=== PATIENT | male | born 1990 | race Caucasian/White ===

== ENCOUNTER 2018-12-22 22:01 | Emergency (ER) | payer MEDICAID ==
[2018-12-22 22:09] VITALS: BP 142/87
--- NOTE | 2018-12-22 22:18 | ED Physician Documentation ---
PD HPI OPHTHO - Stated complaint Stated Complaint: RT EYE IRRITATION - Chief complaint Chief Complaint: Heent - History obtained from History obtained from: Patient - History of Present Illness Timing - onset: Other (He has had eye irritation for the last 7 days with swelling that goes up and down the upper right eyelid and a little bit of the upper left eyelid. His vision is unaffected. He saw an paint tester who said it was nothing.) Review of Systems Constitutional: denies: Fever, Chills Eyes: reports: Irritation. denies: Loss of vision, Decreased vision, Photophobia, Discharge Ears: denies: Loss of hearing, Ear pain PD PAST MEDICAL HISTORY - Present Medications Home Medications: Ambulatory Orders Medication Instructions Recorded Confirmed Tobramycin/Dexamethasone [Tobradex 1 drops OP QID 7 Days #1 drops.susp 12/22/18 Eye Drops] - Allergies Allergies/Adverse Reactions: Allergies Allergy/AdvReac Type Severity Reaction Status Date / Time No Known Drug Allergies Allergy Verified 12/22/18 22:09 PD ED PE NORMAL - Vitals Vital signs reviewed: Yes - General General: Alert and oriented X 3, No acute distress - HEENT HEENT: PERRL, EOMI, Other (He has blepharitis of the upper lids of both eyes, right worse than left. Cornea and sclera are normal. Globes are soft.) - Neuro Neuro: Alert and oriented X 3, Normal speech Results - Vitals Vitals: Vital Signs - 24 hr 12/22/18 22:06 Temperature 36.2 C L Heart Rate 88 Respiratory 16 Rate Blood Pressure 142/87 H O2 Saturation 98 Oxygen O2 Source Room air Departure - Departure Disposition: 01 Home, Self Care Clinical Impression: Blepharitis of both eyes Qualifiers: Blepharitis type: squamous Eyelid: upper Qualified Code(s): H01.021 - Squamous blepharitis right upper eyelid Condition: Good Record reviewed to determine appropriate education?: Yes Instructions: ED Inflammation Eyelid Follow-Up: David Kang MD [Provider Admit Priv/Credential] - Within 3 Days Prescriptions: Tobramycin/Dexamethasone [Tobradex Eye Drops] 1 drops OP QID 7 Days #1 drops.susp Comments: Your blood pressure was elevated today on check into the emergency department. This does not mean that you have hypertension, it is a common phenomenon to come to the emergency department and have elevated blood pressure. I recommend that you see your primary care physician within the week to have it rechecked when you are feeling better.
[2018-12-22] MEDS: TOBRAM/DEXAMETH OPHTH DROPS 2.5 ML EACHEYE STA (22:24)
== END 2018-12-22 22:40 | disposition home or self-care (01) ==
LOC: ED 22:01
DX: H01.021 Squamous blepharitis right upper eyelid (principal); R03.0 Elevated blood-pressure reading, without diagnosis of hypertension
CPT/HCPCS: 99283

== ENCOUNTER 2023-01-17 09:44 | Outpatient (CLI) | payer OTHER ==
[2023-01-17 18:46] LABS: BASOPHILS # (AUTO) 0.1 10^3/uL (0.0-0.1); BASOPHILS % (AUTO) 1.1 %; EOSINOPHILS # (AUTO) 0.3 10^3/uL (0.0-0.7); EOSINOPHILS % (AUTO) 4.1 %; HCT - HEMATOCRIT 49.9 % (42.0-52.0); HGB - HEMOGLOBIN 15.8 g/dL (14.0-18.0); LYMPHOCYTES % (AUTO) 40.4 %; MEAN CORPUSCULAR HEMOGLOBIN 29.6 pg (27.0-31.0); MEAN CORPUSCULAR HGB CONC 31.7 g/dL (32.0-36.0); MEAN CORPUSCULAR VOLUME 93.6 fL (80.0-94.0); MEAN PLATELET VOLUME 9.9 fL (7.4-11.4); MONOCYTES # (AUTO) 0.7 10^3/uL (0.0-1.0); MONOCYTES % (AUTO) 8.9 %; NEUTROPHILS # (AUTO) 3.4 10^3/uL (1.5-6.6); NEUTROPHILS % (AUTO) 45.4 %; PLT - PLATELET COUNT 387 10^3/uL (130-450); RED BLOOD COUNT 5.33 10^6/uL (4.70-6.10); RED CELL DISTRIBUTION WIDTH 12.6 % (12.0-15.0); WHITE BLOOD COUNT 7.4 x10^3/uL (4.8-10.8)
[2023-01-17 19:15] LABS: ALBUMIN 4.3 g/dL (3.2-5.5); ALBUMIN/GLOBULIN RATIO 1.2 (1.0-2.2); BILIRUBIN,TOTAL 0.7 mg/dL (0.2-1.0); CALCIUM 9.4 mg/dL (8.5-10.3); CREATININE 0.9 mg/dL (0.6-1.2); POTASSIUM 4.2 mmol/L (3.5-5.0); TOTAL PROTEIN 7.9 g/dL (6.7-8.2)
[2023-01-17 19:29] LABS: THYROID STIMULATING HORMONE 1.68 uIU/mL (0.34-5.60)
== END 2023-01-17 09:45 | disposition home or self-care (01) ==
LOC: LAB.N 09:44
PROVIDERS: ATTEND Physician Assistant
DX: Z02.89 Encounter for other administrative examinations (principal); F41.9 Anxiety disorder, unspecified
CPT/HCPCS: 36415; 80053; 84443; 85025